=== PATIENT | male | born 1955 | race Caucasian/White ===

== ENCOUNTER 2019-04-07 06:10 | Emergency (ER) | payer BC ==
[2019-04-07] MEDS ORDERED: HYDROmorphone 1 MG/ML Syringe IVPUSH ONE (06:44)
[2019-04-07] MEDS ORDERED: Ondansetron 4 MG/2 ML SDV IVPUSH ONE (06:44)
[2019-04-07] MEDS ORDERED: Lactated Ringers 1,000 ML IV SCH (06:45)
--- NOTE | 2019-04-07 06:50 | EDM.PDOC ---
ED HPI GENERAL MEDICAL PROBLEM - General Chief Complaint: Flank Pain Stated Complaint: L FLANK PAIN Time Seen by Provider: 04/07/19 06:35 - History of Present Illness INITIAL COMMENTS - FREE TEXT/NARRATIVE: 63-year-old male presents the emergency room with left-sided abdominal pain. This pain started about 12 hours ago shortly after eating supper. It is isolated to the left side of his abdomen. It radiates into his back. It has not radiated into his groin. He he has had some nausea with this. He describes the pain is fairly severe. He tried some oxycodone that he had left over from his nasal sinus surgery in January and this did not touch it. Patient does not have a history of any abdominal problems or or prior kidney stones. Patient does not take any routine medications and he is not aware of any allergies Left Flank Pain Score (Numeric/FACES): 8 - Related Data Allergies Allergy/AdvReac Type Severity Reaction Status Date / Time No Known Allergies Allergy Verified 04/07/19 06:26 Home Meds: Home Meds Tamsulosin [Tamsulosin 24 Hr] 0.4 mg PO Q24H #10 cap.er 04/07/19 [Rx] oxyCODONE HCl/Acetaminophen [Percocet 7.5-325 mg Tablet] 1 - 2 each PO Q6H PRN # 20 tablet 04/07/19 [Rx] Social & Family History - Caffeine Use Caffeine Use: Reports: None - Recreational Drug Use Recreational Drug Use: No ED ROS GENERAL - Review of Systems Review Of Systems: See Below Constitutional: Denies: Fever, Chills HEENT: Reports: No Symptoms Respiratory: Reports: No Symptoms Cardiovascular: Reports: No Symptoms GI/Abdominal: Reports: Abdominal Pain, Nausea, Vomiting. Denies: Constipation, Diarrhea : Reports: Flank Pain. Denies: Hematuria Musculoskeletal: Reports: No Symptoms Skin: Reports: No Symptoms Neurological: Reports: No Symptoms Psychiatric: Reports: No Symptoms Immunologic: Reports: No Symptoms ED EXAM, GI/ABD - Physical Exam Exam: See Below Exam Limited By: No Limitations General Appearance: Alert, No Apparent Distress Eyes: Bilateral: Normal Appearance Head: Atraumatic, Normocephalic Neck: Normal Inspection, Supple, Non-Tender, Full Range of Motion Respiratory/Chest: No Respiratory Distress, Lungs Clear, Normal Breath Sounds Cardiovascular: Regular Rate, Rhythm, No Edema, No Murmur GI/Abdominal Exam: Normal Bowel Sounds, Soft, Tender (Significant tenderness on the left side minimally aggravated with palpation. This seems to radiate into his back.) Back Exam: Normal Inspection. No: CVA Tenderness (L), CVA Tenderness (R) Extremities: Normal Inspection, No Pedal Edema Neurological: Alert, Oriented, Normal Cognition Psychiatric: Normal Affect, Normal Mood Skin Exam: Warm, Dry Course - Vital Signs Last Recorded V/S: Last Vital Signs Temp 35.9 C 04/07/19 06:22 Pulse 62 04/07/19 06:22 Resp 20 04/07/19 06:22 BP 161/91 H 04/07/19 06:22 Pulse Ox 98 04/07/19 06:22 - Orders/Labs/Meds Orders: Active Orders 24 hr Category Date Time Status Lactated Ringers [Ringers, Lactated] 1,000 ml Med 04/07/19 06:45 Active IV ASDIRECTED Medication Orders Lactated Ringer's (Ringers, Lactated) 1,000 mls @ 150 mls/hr IV ASDIRECTED FAVIAN Last Admin: 04/07/19 06:53 Dose: 150 mls/hr Labs: Laboratory Tests 04/07/19 04/07/19 04/07/19 Range/Units 06:40 06:40 07:24 WBC 14.43 H (4.23-9.07) K/mm3 RBC 5.16 (4.63-6.08) M/mm3 Hgb 14.8 (13.7-17.5) gm/dl Hct 45.1 (40.1-51.0) % MCV 87.4 (79.0-92.2) fl MCH 28.7 (25.7-32.2) pg MCHC 32.8 (32.2-35.5) g/dl RDW Std Deviation 43.9 (35.1-43.9) fL Plt Count 377 H (163-337) K/mm3 MPV 9.8 (9.4-12.3) fl Neut % (Auto) 84.8 H (34.0-67.9) % Lymph % (Auto) 7.6 L (21.8-53.1) % [place] % (Auto) 6.8 (5.3-12.2) % Eos % (Auto) 0.5 L (0.8-7.0) Baso % (Auto) 0.2 (0.1-1.2) % Neut # (Auto) 12.24 H (1.78-5.38) K/mm3 Lymph # (Auto) 1.09 L (1.32-3.57) K/mm3 [place] # (Auto) 0.98 H (0.30-0.82) K/mm3 Eos # (Auto) 0.07 (0.04-0.54) K/mm3 Baso # (Auto) 0.03 (0.01-0.08) K/mm3 Manual Slide Review Abnormal smear Sodium 139 (136-145) mEq/L Potassium 4.1 (3.5-5.1) mEq/L Chloride 104 (98-107) mEq/L Carbon Dioxide 23 (21-32) mEq/L Anion Gap 16.1 H (5-15) BUN 22 H (7-18) mg/dL Creatinine 1.3 (0.7-1.3) mg/dL Est Cr Clr Drug Dosing TNP Estimated GFR (MDRD) 56 (>60) mL/min BUN/Creatinine Ratio 16.9 (14-18) Glucose 181 H (80-115) mg/dL Calcium 9.5 (8.5-10.1) mg/dL Total Bilirubin 0.4 (0.2-1.0) mg/dL AST 18 (15-37) U/L ALT 35 (16-63) U/L Alkaline Phosphatase 87 (46-116) U/L Total Protein 8.1 (6.4-8.2) g/dl Albumin 4.1 (3.4-5.0) g/dl Globulin 4.0 gm/dL Albumin/Globulin Ratio 1.0 (1-2) Lipase 562 H (73-393) U/L Urine Color Yellow (Yellow) Urine Appearance Clear (Clear) Urine pH 5.5 (5.0-8.0) Ur Specific [place] > or = 1.030 (1.005-1.030) Urine Protein Negative (Negative) Urine Glucose (UA) Negative (Negative) Urine Ketones Negative (Negative) Urine Occult Blood 2+ H (Negative) Urine Nitrite Negative (Negative) Urine Bilirubin Negative (Negative) Urine Urobilinogen 0.2 (0.2-1.0) Ur Leukocyte Esterase Negative (Negative) Urine RBC 5-10 H (0-5) /hpf Urine WBC 0-5 (0-5) /hpf Ur Epithelial Cells 0-5 (0-5) /hpf Urine Bacteria Few (FEW) /hpf Urine Mucus Many H (FEW) /hpf Meds: Medications Generic Name Dose Route Start Last Admin Trade Name Freq PRN Reason Stop Dose Admin Lactated Ringer's 1,000 mls @ 150 mls/hr 04/07/19 06:45 04/07/19 06:53 Ringers, Lactated IV 150 mls/hr ASDIRECTED FAVIAN Administration Discontinued Medications Generic Name Dose Route Start Last Admin Trade Name Freq PRN Reason Stop Dose Admin Hydromorphone HCl 1 mg 04/07/19 06:44 04/07/19 06:54 Dilaudid IVPUSH 04/07/19 06:45 1 mg ONETIME ONE Administration Ondansetron HCl 4 mg 04/07/19 06:44 04/07/19 06:53 Zofran IVPUSH 04/07/19 06:45 4 mg ONETIME ONE Administration Oxycodone/Acetaminophen 2 tab 04/07/19 08:12 04/07/19 08:34 Percocet 325-5 Mg PO 04/07/19 08:13 2 tab ONETIME ONE Administration Tamsulosin HCl 0.4 mg 04/07/19 07:10 04/07/19 07:43 Flomax PO 04/07/19 07:11 0.4 mg ONETIME ONE Administration - Re-Assessments/Exams Free Text/Narrative Re-Assessment/Exam: 04/07/19 08:34 Labs reviewed creatinine 1.3 urinalysis is not suggestive for infectious process white count mildly elevated CT examination shows a 6 mm obstructing stone within the proximal left ureter in agreement to what I saw initially with hydronephrosis on that side also identified was an 8 mm nonobstructing stone within the mid left kidney and a few small gallstones present in the gallbladder I have reviewed this with the patient. At this point the patient will be discharged with Percocet 1 or 2 every 6 hours as needed for pain and he will be started on Flomax. We are trying to get him out appointment at the hospital clinic this coming Wednesday Departure - Departure Time of Disposition: 08:38 Disposition: Home, Self-Care 01 Clinical Impression: Kidney stone on left side - Discharge Information Prescriptions: oxyCODONE HCl/Acetaminophen [Percocet 7.5-325 mg Tablet] 1 - 2 each PO Q6H PRN # 20 tablet PRN Reason: Abdominal Pain Tamsulosin [Tamsulosin 24 Hr] 0.4 mg PO Q24H #10 cap.er Referrals: PCP,Not In Area [Primary Care Provider] - Forms: ED Department Discharge Additional Instructions: Return to the emergency room with any questions problems or worsening symptoms. Seek immediate medical care if you start running a fever or your symptoms worsen. Follow-up in the hospital clinic this coming April 11 at 2:00 however be there at 1:30 to take care of initial paperwork. The clinic number is [phone]. Use the Percocet 1 or 2 every 6 hours as needed for pain. You have also been started on Flomax this is to help your urinary system relax a little bit and hopefully facilitate passage of the kidney stones Sepsis Event Note - Evaluation Sepsis Screening Result: No Definite Risk - Focused Exam Vital Signs: Vital Signs Temp Pulse Resp BP Pulse Ox 04/07/19 06:22 35.9 C 62 20 161/91 H 98 Date Exam was Performed: 04/07/19 Time Exam was Performed: 08:46 - My Orders Last 24 Hours: My Active Orders 04/07/19 06:45 Lactated Ringers [Ringers, Lactated] 1,000 ml IV ASDIRECTED - Assessment/Plan Last 24 Hours: My Active Orders 04/07/19 06:45 Lactated Ringers [Ringers, Lactated] 1,000 ml IV ASDIRECTED
[2019-04-07] MEDS ORDERED: Tamsulosin 0.4 MG Cap.ER PO ONE (07:10)
--- NOTE | 2019-04-07 07:24 | CT ---
CT abdomen and pelvis Technique: Multiple axial sections were obtained from above the dome of the diaphragm inferiorly through the pubic symphysis. Intravenous and oral contrast was not utilized. Study has been performed as a ureteral stone protocol. Findings: Nonobstructing stone is noted within the mid left kidney measuring 8 mm. Obstructing stone is noted within the proximal left ureter located slightly past the UPJ measuring approximately 6 mm. Finding causes proximal hydronephrosis. Slight inflammatory change around the left renal pelvis and left kidney is seen compatible with the obstruction. Cysts are noted within both kidneys. Parapelvic cysts are also seen within the left kidney. Other findings: Visualized lung bases show nothing acute. Liver contains no focal abnormality. Several small high density gallstones are seen within the gallbladder. Pancreas appears within normal limits. Aorta shows atherosclerotic change. 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 No retroperitoneal adenopathy is seen. Atherosclerotic calcification continues into the iliac vessels. Appendix is seen which is normal in size. No pelvic mass or adenopathy is seen. Fat-containing right inguinal hernia is noted. No additional inflammatory change or free fluid is seen. Bone window settings were reviewed which shows no acute osseous finding. Scattered degenerative change is seen within the spine with evidence of prior lumbar spine surgery. Degenerative change is also noted within both hips. Impression: 1. 6 millimeter obstructing stone within the proximal left ureter located slightly past the UPJ. Stone causes proximal hydronephrosis. 2. 8 mm nonobstructing stone within the mid left kidney. 3. Small gallstones are present. 4. Other findings believed to be incidental as described above. Diagnostic code #3 This report was dictated in [place] Standard Time
[2019-04-07] MEDS ORDERED: Acetaminophen/oxyCODONE 325-5 MG Tab PO ONE (08:12)
== END 2019-04-07 09:27 | disposition home or self-care (01) ==
LOC: JD.ED 06:10
DX: N20.0 Calculus of kidney (principal)
CPT/HCPCS: 36415; 74176; 80053; 81001; 83690; 85025; 96361; 96374; 96375; 99284; A9270; J1170; J2405; J7120; 99283

== ENCOUNTER 2023-07-20 06:27 | Observation (INO) | payer BC, MEDICARE ==
[2023-07-20 07:06] LABS: BASOPHILS ABSOLUTE AUTO 0.1 K/mm3 (0.0-0.2); BASOPHILS PERCENT AUTO 0.7 % (0.0-1.0); EOSINOPHILS ABSOLUTE AUTO 0.2 K/mm3 (0.0-0.4); EOSINOPHILS PERCENT AUTO 1.4 % (0.0-6.0); HEMATOCRIT 47.3 % (42.0-52.0); HEMOGLOBIN 15.3 gm/dl (14.0-18.0); IMMATURE GRAN ABSOLUTE AUTO 0.04 K/mm3 (0.00-0.05); IMMATURE GRAN PERCENT AUTO 0.4 % (0.0-0.4); LYMPHOCYTES PERCENT AUTO 9.1 % (24.0-44.0); MEAN CORPUSCULAR HEMOGLOBIN 28.1 pg (28.0-32.0); MEAN CORPUSCULAR HGB CONC 32.3 g/dl (32.0-36.0); MEAN CORPUSCULAR VOLUME 86.9 fl (83.0-99.0); MEAN PLATELET VOLUME 10.4 fl (9.4-12.4); MONOCYTES ABSOLUTE AUTO 0.6 K/mm3 (0.0-0.8); MONOCYTES PERCENT AUTO 5.5 % (0.0-8.0); NEUTROPHILS ABSOLUTE AUTO 8.9 K/mm3 (1.8-7.7); NEUTROPHILS PERCENT AUTO 82.9 % (41.0-71.0); PLATELET COUNT,PLT 307 K/mm3 (150-400); RED BLOOD CELL COUNT 5.44 M/mm3 (4.52-5.90); WHITE BLOOD CELL COUNT,WBC 10.69 K/mm3 (3.9-11.3)
[2023-07-20] MEDS: hydrALAZINE 20 MG/ML SDV IVPUSH ONE ×2 (08:01→11:15)
[2023-07-20] MEDS: Morphine 4 MG/ML Syringe IVPUSH ONE (08:01)
[2023-07-20] MEDS: Pantoprazole 40 MG Vial IVPUSH ONE (08:01)
[2023-07-20] MEDS: Ondansetron 4 MG/2 ML SDV IVPUSH ONE (08:01)
[2023-07-20 08:02] LABS: A/G RATIO 1.1 (1-2); ALBUMIN 4.1 g/dl (3.4-5.0); ANION GAP 14.6 (5-15); BILIRUBIN TOTAL 0.3 mg/dL (0.2-1.0); BUN/CREATININE RATIO 15.8 (14-18); CALCIUM 9.5 mg/dL (8.5-10.1); CREATININE 1.2 mg/dL (0.7-1.3); EST CRCL DRUG DOSING (CG) 63.77 mL/min; POTASSIUM,K 3.6 mEq/L (3.5-5.1); PROTEIN TOTAL,TP 7.8 g/dl (6.4-8.2)
[2023-07-20 08:15] LABS: INR 0.97; PROTHROMBIN TIME 10.4 SECONDS (9.7-12.0)
[2023-07-20 08:17] LABS: PTT,PARTIAL THROMBOPLSTIN TIME 29.3 SECONDS (21.7-31.4)
[2023-07-20] MEDS: Iopamidol 612 MG/ML 100 ML Bottle IVPUSH ONE (09:12)
[2023-07-20] MEDS: Sodium Chloride 0.9% 10 ML Syringe FLUSH PRN (09:12)
[2023-07-20] MEDS: metroNIDAZOLE/Normal Saline 500 MG in Premix Bag 1 BAG IV ONE (10:48)
[2023-07-20] MEDS: Levofloxacin/Dextrose 5%-Water 750 MG in Premix Bag 1 BAG IV ONE (10:51)
[2023-07-20 11:56] LABS: APPEARANCE,URINE CLEAR (Clear); BILIRUBIN,URINE NEGATIVE (Negative); COLOR,URINE YELLOW (Yellow); GLUCOSE,URINE NEGATIVE (Negative); KETONES,URINE 3+ (Negative); LEUKOCYTE ESTERASE,URINE NEGATIVE (Negative); NITRITE,URINE NEGATIVE (Negative); OCCULT BLOOD,URINE NEGATIVE (Negative); PROTEIN,URINE NEGATIVE (Negative); UROBILINOGEN,URINE 0.2 (0.2-1.0)
[2023-07-20] MEDS: Metoprolol Tartrate 5 MG/5 ML SDV IVPUSH ONE (12:07)
[2023-07-20] MEDS: Sodium Chloride 0.9% 1,000 ML IV ONE (12:44)
== END 2023-07-20 17:09 | disposition home or self-care (01) ==
LOC: JD.ED 06:27 → JD.MS 10:29
PROVIDERS: ADMIT Surgery; ATTEND Surgery
DX: K80.00 Calculus of gallbladder with acute cholecystitis without obstruction (principal); I10 Essential (primary) hypertension; Z87.891 Personal history of nicotine dependence
CPT/HCPCS: 36415; 74177; 76705; 80053; 81003; 83690; 85025; 85610; 85730; 86850; 86900; 86901; 96365; 96367; 96375; 96376; 99285; C9113; G0378; J0360; J1836; J1956; J2270; J2405; J3490; Q9967; 99284

== ENCOUNTER 2023-11-04 12:43 | Emergency (ER) | payer MEDICARE, OTHER ==
[2023-11-04 14:28] LABS: APPEARANCE,URINE SLT CLOUDY (Clear); BILIRUBIN,URINE 1+ (Negative); COLOR,URINE YELLOW (Yellow); GLUCOSE,URINE NEGATIVE (Negative); KETONES,URINE 2+ (Negative); LEUKOCYTE ESTERASE,URINE NEGATIVE (Negative); NITRITE,URINE NEGATIVE (Negative); OCCULT BLOOD,URINE NEGATIVE (Negative); PH,URINE 5.5 (5.0-8.0); PROTEIN,URINE 2+ (Negative)
[2023-11-04] MEDS: Ketorolac 15 MG/ML SDV IVPUSH ONE (14:29)
[2023-11-04] MEDS: HYDROmorphone 0.5 MG/0.5 ML Syringe IVPUSH ONE (14:29)
[2023-11-04] MEDS: Ondansetron 4 MG/2 ML SDV IVPUSH ONE (14:29)
[2023-11-04] MEDS: Sodium Chloride 0.9% 10 ML Syringe FLUSH PRN (14:34)
[2023-11-04 14:43] LABS: BASOPHILS ABSOLUTE AUTO 0.1 K/mm3 (0.0-0.2); BASOPHILS PERCENT AUTO 0.4 % (0.0-1.0); EOSINOPHILS ABSOLUTE AUTO 0.1 K/mm3 (0.0-0.4); EOSINOPHILS PERCENT AUTO 0.6 % (0.0-6.0); HEMATOCRIT 45.5 % (42.0-52.0); IMMATURE GRAN ABSOLUTE AUTO 0.06 K/mm3 (0.00-0.05); IMMATURE GRAN PERCENT AUTO 0.4 % (0.0-0.4); LYMPHOCYTES PERCENT AUTO 6.2 % (24.0-44.0); MEAN CORPUSCULAR HEMOGLOBIN 27.8 pg (28.0-32.0); MEAN CORPUSCULAR VOLUME 84.4 fl (83.0-99.0); MEAN PLATELET VOLUME 11.2 fl (9.4-12.4); MONOCYTES PERCENT AUTO 12.4 % (0.0-8.0); NEUTROPHILS ABSOLUTE AUTO 12.9 K/mm3 (1.8-7.7); PLATELET COUNT,PLT 288 K/mm3 (150-400); RED BLOOD CELL COUNT 5.39 M/mm3 (4.52-5.90); WHITE BLOOD CELL COUNT,WBC 16.17 K/mm3 (3.9-11.3)
[2023-11-04 14:55] LABS: EPITHELIAL CELLS,URINE 0-5 /hpf (0-5); RBC,URINE 0-5 /hpf (0-5); WBC,URINE 0-5 /hpf (0-5)
[2023-11-04 14:56] LABS: AMORPHOUS SEDIMENT,URINE FEW /hpf (NOT SEEN); BACTERIA,URINE FEW /hpf (FEW); HYALINE CASTS,URINE 0-5 /lpf (0-5); MUCUS,URINE MANY /hpf (FEW)
[2023-11-04] MEDS: Sodium Chloride 0.9% 1,000 ML IV SCH (15:02)
[2023-11-04 15:05] LABS: SLIDE REVIEW ABNORMAL SMEAR
[2023-11-04 16:05] LABS: A/G RATIO 0.7 (1-2); ANION GAP 14.8 (5-15); BILIRUBIN TOTAL 0.6 mg/dL (0.2-1.0); BUN/CREATININE RATIO 14.4 (14-18); CALCIUM 8.9 mg/dL (8.5-10.1); CREATININE 1.6 mg/dL (0.7-1.3); EST CRCL DRUG DOSING (CG) 44.99 mL/min; POTASSIUM,K 3.8 mEq/L (3.5-5.1); PROTEIN TOTAL,TP 7.2 g/dl (6.4-8.2)
== END 2023-11-04 17:38 | disposition home or self-care (01) ==
LOC: JD.ED 12:43 → MERGE 12:43 → JD.ED 17:38
DX: N20.1 Calculus of ureter (principal); I10 Essential (primary) hypertension; Z86.16 Personal history of COVID-19; Z79.82 Long term (current) use of aspirin; Z79.899 Other long term (current) drug therapy
CPT/HCPCS: 36415; 74018; 80053; 81001; 83690; 85025; 96361; 96374; 96375; 99284; J1170; J1885; J2405; J3490; J7030